=== PATIENT | male | born 1985 | race Caucasian/White ===

== ENCOUNTER 2025-05-05 20:29 | Emergency (ER) | payer MEDICAID, SELFPAY ==
[2025-05-05 20:30] VITALS: BMI 26.6
[2025-05-05 20:36] VITALS: BP 164/115; BP 165/105; PULSE 74; RESP 20; TEMP 36.6; O2SAT 99
--- NOTE | 2025-05-05 20:45 | XR_ITS ---
Examination: CT abdomen and pelvis without contrast. Coronal 3-D reconstructions. Sagittal 2-D reconstructions. Date and time of exam:May 05, [id number] hours Comparison March 19, 2022 INDICATIONS: Abdominal pain and right-sided flank pain beginning 2 hours ago, history kidney stones CTDI: vol (mGy): 5.82 DLP: (mGycm): 304 Technique: Axial images of the abdomen have been obtained, 3 mm slice thickness Intravenous contrast material has not been administered. Low dose protocols were performed. One or more of the following dose reduction techniques were used; automated exposure control, adjustment of the mA and/or KV according to patient size, use of iterative reconstruction technique. Findings: Indications Absent gallbladder No pancreatic or adrenal mass Bilateral 1 to 4 mm renal calculi Normal appendix Minimal right hydronephrosis 4 mm proximal right ureteral calculus No bowel obstruction No diverticulitis Contracted urinary bladder. No prostatomegaly IMPRESSION: Bilateral renal calculi Minimal right hydronephrosis, 4 mm proximal right ureteral calculus
--- NOTE | 2025-05-05 20:46 | PD.EDRME ---
Rapid Medical Screening Exam RME Arrival date/time: 05/05/25 20:29 40M with no significant PMH presents to ED with 1 day of R flank pain that radiates toward groin, as well some N/V. Chief Complaint: Abdominal Pain Time Seen by Provider: 05/06/25 00:41 Vital signs: Vital Signs Temperature 97.9 F 05/05/25 20:36 Pulse Rate 74 05/05/25 20:36 Respiratory Rate 20 05/05/25 20:36 Blood Pressure 164/115 H 05/05/25 20:36 Pulse Oximetry (%) 99 05/05/25 20:36 Oxygen Delivery Method Room Air 05/05/25 20:36
[2025-05-05] MEDS: KETOROLAC INJ 60 MG/2 ML VIAL IM (21:02)
[2025-05-05] MEDS: ONDANSETRON ODT 4 MG TABRAP PO (21:02)
[2025-05-05 21:11] LABS: Basophils # (Auto) 0.1 Thou/mm3 (0.0-0.2); Basophils % (Auto) 1 % (0-2.5); Eosinophils # (Auto) 0.2 Thou/mm3 (0.0-0.5); Eosinophils % (Auto) 2 % (0-10); Hematocrit 45.0 % (41.0-53.0); Hemoglobin 15.6 g/dL (13.5-16.0); Immature Granulocytes Auto 0.07 Thou/mm3 (0.00-0.00); Lymphocytes # (Auto) 3.6 Thou/mm3 (1.0-4.8); Lymphocytes % (Auto) 26 % (10-50); Mean Corpuscular HGB Conc 34.7 g/dl (31.0-37.0); Mean Corpuscular Hemoglobin 31.2 pg (25.0-35.0); Mean Corpuscular Volume 90 fL (80-100); Monocytes # (Auto) 1.0 Thou/mm3 (0.0-0.8); Monocytes % (Auto) 7 % (0-12); Neutrophils # (Auto) 8.9 Thou/mm3 (1.8-7.7); Neutrophils % (Auto) 64 % (37-80); Nucleated Red Blood Cell # 0.00 Thou/mm3 (0.00-0.00); Nucleated Red Blood Cell % 0 /100 WBC (0); Platelet Count 236 Thou/mm3 (140-440); RDW Standard Deviation 48.3 fL (35.1-43.9); Red Blood Count 5.00 Miln/mm3 (4.50-5.90); White Blood Count 13.9 Thou/mm3 (3.8-10.6)
[2025-05-05 21:30] LABS: Alanine Aminotransferase 26 U/L (10-49); Albumin, Serum 4.6 gm/dL (3.5-5.0); Albumin/Globulin Ratio 1.8 (1.2-2.2); Alkaline Phosphatase 73 U/L (46-116); Anion Gap 11 (7-16); Aspartate Amino Transferase 25 U/L (0-34); BUN/Creatinine Ratio 9 Ratio (12-20); Bilirubin,Total 0.9 mg/dL (0.3-1.2); Blood Urea Nitrogen 13 mg/dL (9-23); Calcium 9.9 mg/dL (8.3-10.6); Calcium (Corrected) 9.9 mg/dL (8.5-10.1); Carbon Dioxide 25.3 mMol/L (20.0-31.0); Chloride 108 mMol/L (98-107); Creatinine (Component) 1.4 mg/dL (0.6-1.3); Estimated Creatinine Clearance 66.9 mL/min (>60); Globulin 2.5 gm/dL (2.3-3.5); Glucose 105 mg/dL (74-106); Lipase 43 U/L (12-53); Osmolality,Calculated 286 (275-295); Potassium 4.3 mMol/L (3.4-5.1); Sodium 144 mMol/L (136-145); Total Protein 7.1 gm/dL (5.7-8.2); eGFR > 60 See Note
[2025-05-05 22:32] LABS: Collection Type, Urine Clean Catch
[2025-05-05 22:45] LABS: Amorphous Crystals,Urine Present (Absent); Bilirubin,Urine Negative (Negative); Blood,Urine 3+ (Negative); Clarity,Urine Turbid (Clear/Hazy); Color,Urine Yellow (Lt Yel-Yel); Culture Indicated,Urine Not Indicated; Glucose, Urine Negative (Negative); Ketones,Urine Trace (Negative); Leukocyte Esterase,Urine Negative (Negative); Nitrite,Urine Negative (Negative); PH,Urine 6.0 (5.0-7.0); Protein,Urine 2+ (Neg - Trace); RBC,Urine 2297 /hpf (0-3); Specific Gravity,Urine 1.041 (1.001-1.035); Squamous Epithelial Cell,Urine 1 /hpf (0-5); Urobilinogen,Urine 4.0 mg/dL (0.0-1.0); WBC,Urine 9 /hpf (0-5)
[2025-05-06 00:07] LABS: Amphetamine/Methamp Scrn,U Negative (Negative); Barbiturate Screen,Urine Negative (Negative); Benzodiazepines Screen,Urine Negative (Negative); Benzoylecgonine Screen, Ur Negative (Negative); Fentanyl Screen,Urine Negative (Negative); Opiate Screen,Urine Negative (Negative); THC Screen,Urine Positive (Negative)
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
[2025-05-06 00:52] VITALS: BP 165/94; PULSE 76; RESP 20; TEMP 36.8; O2SAT 96
[2025-05-06] MEDS: ONDANSETRON INJ 2 MG/ML INJ 2 ML 4 MG IV (00:57)
[2025-05-06] MEDS: SODIUM CHLORIDE 0.9% 1000 ML 1,000 ML 999 ML IV ×2 (00:59→01:52)
[2025-05-06] MEDS: MORPHINE SULF INJ 10 MG/ML VIAL 5 MG IVP (01:00)
[2025-05-06] MEDS: TAMSULOSIN HCL 0.4 MG CAPSULE PO (01:08)
[2025-05-06 02:54] VITALS: RESP 12
== END 2025-05-06 02:55 | disposition home or self-care (01) ==
PROVIDERS: Physician Assistant; Emergency Provider Emergency Medicine; PCP Family Medicine
DX: N20.0 Calculus of kidney (principal)
CPT/HCPCS: 36415; 74176; 80053; 80307; 81001; 83690; 85025; 96361; 96372; 96374; 96375; 99283; 99284; J1885; J2270; J2405; J7030; Q0162; A9270

== ENCOUNTER 2025-05-06 13:47 | Emergency (ER) | payer MEDICAID, SELFPAY ==
[2025-05-06 14:05] VITALS: BP 162/93; PULSE 55; RESP 17; TEMP 37.2; O2SAT 98; BMI 25.0
--- NOTE | 2025-05-06 14:14 | EDNOTE_ITS ---
<Statement entered by Claire Orellana MD - 05/10/25 05:44> As co-signing physician, I was present and available for consult prn. I concur with the plan and care as documented by the midlevel provider. ED Abdominal Pain RME/HPI General Chief Complaint: Abdominal Pain Stated complaint: Right side flank pain since yesterday Time seen by provider: 05/06/25 13:59 Arrival date/time: 05/06/25 13:47 RME / HPI RME / HPI narrative: 40-year-old male patient was brought in by family for evaluation regarding right lower abdominal pain. Pain is described as sharp pain, severity 10 out of 10 associated with nausea. Patient came here yesterday and was diagnosed with 4 mm right ureteral stone. Was given 2 L of IV fluids, morphine Toradol which according to the patient improves the pain. Recurrence of pain (consultation. Denies any fever. Related Data Home Medications ?Medication ?Instructions ?Recorded ?Confirmed docusate sodium 100 mg capsule 1 cap PO BID 03/20/22 0 03/20/22 ibuprofen 800 mg tablet 800 mg PO Q8H PRN Pain 03/2003/20/22 psyllium 1 packet PO BID 03/20/22 Previous Rx's ?Medication ?Instructions ?Recorded hydrocodone 5 mg-acetaminophen 325 1 tab PO BID PRN pa in #14 tabs 05/06/25 mg tablet tamsulosin 0.4 mg capsule (Flomax) 0.4 mg PO QDAY #30 caps 05/06/25 Allergies Allergy/AdvReac Type Severity Reaction Status Date / Time No Known Allergies Allergy Verified 05/05/25 20:30 Review of Systems Review of Systems Narrative Review of Systems: Review of system reviewed and within normal limits except mentioned in HPI ED Exam Narrative Physical exam: VITAL SIGNS: Reviewed. GENERAL APPEARANCE: Alert and interactive, follows commands, no acute distress, HEAD AND FACE: Non-traumatic. ENT: PERRL, pink conjunctivitis, eyelid no trauma, Mucous membrane moist. NECK: Supple, nontender, no nuchal rigidity. CHEST: No tenderness, no crepitus, no paradoxical movement, no retractions. LUNGS: Clear, well ventilated, symmetric, no rales, no wheezing, no ronchi, no stridor, good breath sounds bilaterally. HEART: Regular rate, regular rhythm, no murmur, no gallops. ABDOMEN: Soft, positive bowel sounds, nondistended, no guarding, right lower abdominal pain, no rebound, no masses, RECTAL: Deferred. GENITAL: Deferred. NEUROLOGICAL: Gross motor function intact sensory function intact, Appropriate for age. MUSCULOSKELETAL: low back nontender, full range of motion. EXTREMITIES: Nontender, full range of motion. SKIN: Color pink, dry, no rash, no lacerations, no abrasions, no contusions. LYMPHATICS: Deferred. Course Quality Measures none Orders Category Date Time Status IV [Insert IV] NOW Care 05/06/25 15:02 Completed CBC [CBC] Stat Lab 05/06/25 14:53 Completed CMP [Comprehensive Metabolic Panel] Stat Lab 05/06/25 14:53 Completed UA, C/S IF [Urinalysis, C/S if Indicated] Stat Lab 05/06/25 16:22 Completed Urine Culture Stat Lab 05/06/25 16:22 Received Amoxicillin/Pot Clav 875 [Augmentin 875] Med 05/06/25 17:25 Discontinued 1 tab PO X1 ONE Ketorolac Inj [Toradol Inj] Med 05/06/25 14:13 Discontinued 30 mg IVP X1 ONE Morphine Inj Med 05/06/25 16:55 Discontinued 4 mg IM X1 ONE Ondansetron Inj [Zofran Inj] Med 05/06/25 14:13 Discontinued 4 mg IVP X1 ONE Ringers Lactated 1000 ml [Lactated Ringers] 1,000 ml Med 05/06/25 14:13 Discontinued IV 999 mls/hr Vital Signs Vital signs: Vital Signs Temperature 98.9 F 05/06/25 14:05 Pulse Rate 55 L 05/06/25 14:05 Respiratory Rate 17 05/06/25 14:05 Blood Pressure 162/93 H 05/06/25 14:05 Pulse Oximetry (%) 98 05/06/25 14:05 Oxygen Delivery Method Room Air 05/06/25 14:05 Abdominal Pain MDM MDM Narrative MDM Narrative:: 40-year-old male patient was brought in by family for evaluation regarding right lower abdominal pain. Pain is described as sharp pain, severity 10 out of 10 associated with nausea. Patient came here yesterday and was diagnosed with 4 mm right ureteral stone. Was given 2 L of IV fluids, morphine Toradol which according to the patient improves the pain. Recurrence of pain (consultation. Denies any fever. Patient's repeat CBC showed no acute abnormality, patient's CMP also showed unremarkable except for total bili 1.9 AST of 67 alkaline phos of 88. Urinalysis no UTI Patient data External records reviewed:: None Clinical information provided by:: patient Social determinants that could affect healthcare access:: none Patient has the following chronic illnesses:: None How is presenting disease/condition affected by chronic disease/condition?: exacerbated by Evaluation data The following diagnostics were reviewed and interpreted by me:: lab results Lab and/or radiology exams considered but not ordered:: None Interpretation Summary: See results in [facility] Medications / Prescriptions Medications or Prescriptions considered but not ordered:: None Medication administrations:: Medication Administration History Discontinued Medications Amoxicillin/Clavulanate Potassium (Amoxicillin/Pot Clav 875 Tablet) 1 tab PO X1 ONE Stop: 05/06/25 17:26 Last Admin: 05/06/25 17:49 Dose: 1 tab Documented By: Lactated Ringer's (Lactated Ringers) 1,000 mls @ 999 mls/hr IV .Q1H1M ONE Stop: 05/06/25 15:13 Last Infusion: 05/06/25 16:29 Dose: Infused Documented By: Admin: 05/06/25 15:06 Dose: 999 mls/hr Documented By: TOYA Ketorolac Tromethamine (Ketorolac Inj 30 Mg/Ml Vial) 30 mg IVP X1 ONE Stop: 05/06/25 14:14 Last Admin: 05/06/25 15:06 Dose: 30 mg Documented By: TOYA Morphine Sulfate (Morphine Sulf Inj 10 Mg/Ml Vial) 4 mg IM X1 ONE Stop: 05/06/25 16:56 Last Admin: 05/06/25 17:23 Dose: 4 mg Documented By: TOYA Ondansetron HCl (Ondansetron Inj 2 Mg/Ml Inj 2 Ml) 4 mg IVP X1 ONE; Protocol Stop: 05/06/25 14:14 Last Admin: 05/06/25 15:06 Dose: 4 mg Documented By: TOYA IV fluids, morphine, Toradol and Zofran Consultations Consultation(s) initiated? (list below): No Diagnosis Differential diagnosis abdominal pain: abdominal pain and calculus of kidney Most likely diagnosis given after review of the tests above:: Renal colic, ureterolithiasis Admission Indicated Admission indicated?: not indicated Admission Request Was there a request for admission?: No Disposition Plan Disposition Plan: Discharge Discharge Attestation Discharge Attestation: The patient was given an opportunity to ask questions and understood the discharge instructions. Discharge instructions specifically effects, indications for sooner follow up or return to the emergency department, and the expected course of current diagnosis. Patient condition: Stable Discharge Plan Plan Patient Disposition: HOME (Self Care) Discharge Disposition comment: Stable Prescriptions/Referrals Prescriptions/Med Rec: No Action ibuprofen 800 mg Tablet 800 mg PO Q8H PRN (Reason: Pain) psyllium Packet 1 packet PO BID Rx Instructions: mix into at least 8 oz of water or juice before administering docusate sodium 100 mg capsule 1 cap PO BID Patient Comments: TAKE 1 CAPSULE BY MOUTH TWICE DAILY tamsulosin [Flomax] 0.4 mg capsule 0.4 mg PO QDAY Qty: 30 0RF hydrocodone-acetaminophen 5-325 mg tablet 1 tab PO BID MDD 2 PRN (Reason: pain) Qty: 14 0RF Referrals: Bigg Watkins MD [Primary Care Provider] - In 1 week Problem List Clinical Impression: Renal colic, Ureterolithiasis Patient/Caregiver Discharge Instructions Discharge Activity: activity as tolerated Education Materials: Preventing Kidney Stones Additional Instructions: Thank you for the opportunity for serving you today. You are stable for discharged . You are advised to: Follow-up with your PCP in 1 to 2 days Return to ED for worsening of symptoms Increase oral fluids Take medication as prescribed yesterday As your PCP to refer you to a urologist regarding your bilateral kidney stones Print Language: Hungarian Stand Alone Forms: [employer]era Award Info., Patient Portal Info Letter
[2025-05-06] MEDS: RINGERS LACTATED 1000 ML 1,000 ML 999 ML IV (15:06)
[2025-05-06] MEDS: KETOROLAC INJ 30 MG/ML VIAL IVP (15:06)
[2025-05-06] MEDS: ONDANSETRON INJ 2 MG/ML INJ 2 ML 4 MG IVP (15:06)
[2025-05-06 15:17] LABS: Basophils # (Auto) 0.1 Thou/mm3 (0.0-0.2); Basophils % (Auto) 1 % (0-2.5); Eosinophils # (Auto) 0.0 Thou/mm3 (0.0-0.5); Eosinophils % (Auto) 0 % (0-10); Hematocrit 44.4 % (41.0-53.0); Hemoglobin 15.5 g/dL (13.5-16.0); Immature Granulocytes Auto 0.05 Thou/mm3 (0.00-0.00); Lymphocytes # (Auto) 1.1 Thou/mm3 (1.0-4.8); Lymphocytes % (Auto) 10 % (10-50); Mean Corpuscular HGB Conc 34.9 g/dl (31.0-37.0); Mean Corpuscular Hemoglobin 31.3 pg (25.0-35.0); Mean Corpuscular Volume 90 fL (80-100); Monocytes # (Auto) 0.6 Thou/mm3 (0.0-0.8); Monocytes % (Auto) 5 % (0-12); Neutrophils # (Auto) 9.0 Thou/mm3 (1.8-7.7); Neutrophils % (Auto) 84 % (37-80); Nucleated Red Blood Cell # 0.00 Thou/mm3 (0.00-0.00); Nucleated Red Blood Cell % 0 /100 WBC (0); Platelet Count 196 Thou/mm3 (140-440); RDW Standard Deviation 47.0 fL (35.1-43.9); Red Blood Count 4.95 Miln/mm3 (4.50-5.90); White Blood Count 10.8 Thou/mm3 (3.8-10.6)
[2025-05-06 15:32] LABS: Alanine Aminotransferase 88 U/L (10-49); Albumin, Serum 4.3 gm/dL (3.5-5.0); Albumin/Globulin Ratio 1.7 (1.2-2.2); Alkaline Phosphatase 78 U/L (46-116); Anion Gap 10 (7-16); Aspartate Amino Transferase 67 U/L (0-34); BUN/Creatinine Ratio 8 Ratio (12-20); Bilirubin,Total 1.9 mg/dL (0.3-1.2); Blood Urea Nitrogen 11 mg/dL (9-23); Calcium 9.1 mg/dL (8.3-10.6); Calcium (Corrected) 9.1 mg/dL (8.5-10.1); Carbon Dioxide 22.2 mMol/L (20.0-31.0); Chloride 110 mMol/L (98-107); Creatinine (Component) 1.4 mg/dL (0.6-1.3); Estimated Creatinine Clearance 66.9 mL/min (>60); Globulin 2.5 gm/dL (2.3-3.5); Glucose 124 mg/dL (74-106); Osmolality,Calculated 283 (275-295); Potassium 3.8 mMol/L (3.4-5.1); Sodium 142 mMol/L (136-145); Total Protein 6.8 gm/dL (5.7-8.2); eGFR > 60 See Note
[2025-05-06 16:37] LABS: Collection Type, Urine Clean Catch; Squamous Epithelial Cell,Urine 0 /hpf (0-5)
[2025-05-06 17:21] VITALS: BP 134/91; PULSE 93; RESP 18; TEMP 36.8; O2SAT 97
[2025-05-06] MEDS: MORPHINE SULF INJ 10 MG/ML VIAL 4 MG IM (17:23)
[2025-05-06 17:32] LABS: Bilirubin,Urine Negative (Negative); Blood,Urine 3+ (Negative); Clarity,Urine Turbid (Clear/Hazy); Glucose, Urine Negative (Negative); Hyaline Casts,Urine < 1 /hpf (0-1); Ketones,Urine 3+ (Negative); Leukocyte Esterase,Urine Negative (Negative); Nitrite,Urine Negative (Negative); PH,Urine 6.0 (5.0-7.0); Protein,Urine 2+ (Neg - Trace); RBC,Urine 982 /hpf (0-3); Specific Gravity,Urine 1.035 (1.001-1.035); Urobilinogen,Urine 2.0 mg/dL (0.0-1.0); WBC,Urine 11 /hpf (0-5)
[2025-05-06] MEDS: AMOXICILLIN/POT CLAV 875 TABLET 1 TAB PO (17:49)
[2025-05-06 18:13] LABS: Color,Urine Amber (Lt Yel-Yel); Culture Indicated,Urine Yes
== END 2025-05-06 18:21 | disposition home or self-care (01) ==
PROVIDERS: Nurse Practitioner Family; Emergency Provider Emergency Medicine; PCP Family Medicine
DX: N20.1 Calculus of ureter (principal)
CPT/HCPCS: 36415; 80053; 81001; 85025; 87086; 96361; 96372; 96374; 96375; J1885; J2270; J2405; J7120; A9270